=== PATIENT | male | born 1975 | race Two or more races ===

== ENCOUNTER 2025-02-13 07:55 | Emergency (ER) | payer OTHER ==
[~2025-02-13] VITALS: Ht 180.3 cm; Wt 102.1 kg
[2025-02-13 08:03] VITALS: BP 170/100; O2SAT 99
[2025-02-13] MEDS ORDERED: CLONIDINE HCL 0.1 MG TABLET PO ONE (08:44)
[2025-02-13] MEDS ORDERED: cloNIDine HCL 0.2 MG TABLET PO ONE (08:45)
== END 2025-02-13 10:06 | disposition home or self-care (01) ==
LOC: ER 07:58
DX: I10 Essential (primary) hypertension (principal); Z88.6 Allergy status to analgesic agent